=== PATIENT | female | born 1955 | race Caucasian/White ===

== ENCOUNTER → 2016-08-09 | Outpatient (CLI) | payer BC ==
[2016-08-09 07:16] LABS: HEMOGLOBIN 15.6 g/dL (12.0-16.0); MEAN CORPUSCULAR VOLUME 79.4 FL (81-99)
[2016-08-09 07:18] LABS: BASOPHILS # (AUTO) 0.14 10*3/UL; BASOPHILS % (AUTO) 2.5 % (0-1); EOSINOPHILS # (AUTO) 0.23 10*3/UL; EOSINOPHILS % (AUTO) 4.1 % (0-8); HEMATOCRIT 46.5 % (37.0-47.0); LYMPHOCYTES # (AUTO) 2.26 10*3/uL; MEAN CORPUSCULAR HEMOGLOBIN 26.6 PG (27-31); MEAN CORPUSCULAR HGB CONC 33.5 g/dL (33-37); MEAN PLATELET VOLUME 10.9 FL (7.4-12.2); MONOCYTES # (AUTO) 0.43 10*3/UL (0.3-0.8); MONOCYTES % (AUTO) 7.6 % (5-15); NEUTROPHILS # (AUTO) 2.56 10*3/UL; NEUTROPHILS % (AUTO) 45.5 % (50-80); RED BLOOD COUNT 5.86 10^6/uL (4.20-5.40)
[2016-08-09 07:19] LABS: PLATELET MORPHOLOGY COMMENT NORMAL MORPHOLOGY (NORM); RBC MORPHOLOGY COMMENT NORMAL MORPHOLOGY (NORM); WBC MORPHOLOGY COMMENT NORMAL MORPHOLOGY (NORM)
[2016-08-09 07:36] LABS: BUN/CREATININE RATIO 25.45 (6-20); CALCIUM 9.1 mg/dL (8.7-10.7); CHOL/HDL RATIO 4.14 RATIO (0-4.0); LDL CHOLESTEROL,CALCULATED 117.8 mg/dL; SERUM ALBUMIN 4.1 g/dL (3.5-4.8)
[2016-08-09 08:33] LABS: FREE T4 (FREE THYROXINE) 1.36 ng/dL (0.93-1.71)
== END ==
LOC: LAB 07:00
PROVIDERS: ATTEND Internal Medicine
DX: E89.0 Postprocedural hypothyroidism (principal); I48.91 Unspecified atrial fibrillation; E66.01 Morbid (severe) obesity due to excess calories; R49.9 Unspecified voice and resonance disorder; Z85.850 Personal history of malignant neoplasm of thyroid
CPT/HCPCS: 36415; 80053; 80061; 84439; 84443; 85025

== ENCOUNTER → 2016-09-20 | Outpatient (CLI) | payer BC ==
[2016-09-20 20:58] LABS: HEMOGLOBIN A1C 6.17 % (4.2-6.0)
[2016-09-22 12:34] LABS: THYROGLOBULIN TUMOR MARKER <0.1 ng/mL (())
== END ==
LOC: LAB 20:21
PROVIDERS: ATTEND Pediatrics Pediatric Endocrinology
DX: R94.6 Abnormal results of thyroid function studies (principal); R63.5 Abnormal weight gain; Z85.850 Personal history of malignant neoplasm of thyroid; Z83.3 Family history of diabetes mellitus
CPT/HCPCS: 36415; 82306; 83036; 84432; 84439; 84443; 84481; 86800